=== PATIENT | male | born 1965 | race Native Hawaiian/Other Pacific Islander ===

== ENCOUNTER 2020-04-12 13:39 | Emergency (ER) | payer OTHER ==
[2020-04-12 13:45] VITALS: BP 130/82
--- NOTE | 2020-04-12 14:15 | Emergency Department Report ---
ED Headache HPI - General Chief Complaint: Headache Stated Complaint: HEADACHE Time Seen by Provider: 04/12/20 13:58 Source: patient, RN notes reviewed Exam Limitations: no limitations - History of Present Illness Initial Comments: This is a 55-year-old male nontoxic, well nourished in appearance, no acute signs of distress presents to the ED with c/o of acute headache and neck pain x1 day. Patient stated a cargo landed onto his posterior scalp area and had about 15 to 20 minutes loss of consciousness. Bystanders present during this time. Patient that this occurred yesterday around 3 PM. Patient describes headache as diffuse with level of 8 out of 10. Patient denies thunderclap headache. Patient denies any radiation of pain. Patient denies any visual changes. Pat ient denies worse headache. Patient denies any numbness, tingling, fever, chills, nausea, vomiting, chest pain, shortness of breath, stiff neck. Patient denies facial drooping or one sided weakness. Patient denies any radiation of pain. Patient denies any allergies. Quality: mild, achy Head Injury Location: occipital Recent Head Trauma: head trauma > 24 hrs ago Associated Symptoms: loss of consciousness. denies: confusion, fatigue, facial pain, fever/chills, flushing, nausea/vomiting, nasal congestion, nasal drainage, numbness in legs/feet, rash, seizures, sinus infection, stiff neck, vision changes, weakness Allergies/Adverse Reactions: Allergies No Known Allergies Allergy (Verified 04/12/20 13:45) Home Medications: Ambulatory Orders Acetaminophen/Codeine [Tylenol /Codeine # 3 tab] 1 tab PO Q6H PRN #12 tab 04/12/20 ED Review of Systems ROS: Stated complaint: HEADACHE Other details as noted in HPI Comment: All other systems reviewed and negative Constitutional: denies: chills, fever Eyes: denies: eye pain, eye discharge, vision change ENT: denies: ear pain, throat pain Respiratory: denies: cough, shortness of breath, wheezing Cardiovascular: denies: chest pain, palpitations Endocrine: no symptoms reported Gastrointestinal: denies: abdominal pain, nausea, diarrhea Genitourinary: denies: urgency, dysuria Musculoskeletal: denies: back pain, joint swelling, arthralgia Skin: denies: rash, lesions Neurological: headache. denies: weakness, numbness, paresthesias, confusion, abnormal gait, vertigo Psychiatric: denies: anxiety, depression Hematological/Lymphatic: denies: easy bleeding, easy bruising ED Past Medical Hx - Social History Smoking Status: Current Every Day Smoker Substance Use Type: None - Medications Home Medications: Home Medications Medication Instructions Recorded Confirmed Last Taken Type Acetaminophen/Codeine [Tylenol 1 tab PO Q6H PRN #12 tab 04/12/20 Unknown Rx /Codeine # 3 tab] ED Physical Exam - General Limitations: Language Barrier General appearance: alert, in no apparent distress - Head Head exam: Present: atraumatic, normocephalic - Eye Eye exam: Present: normal appearance, PERRL, EOMI - ENT ENT exam: Present: normal exam, normal orophraynx - Neck Neck exam: Present: normal inspection, full ROM. Absent: tenderness, meningismus, lymphadenopathy - Respiratory Respiratory exam: Absent: respiratory distress - Cardiovascular Cardiovascular Exam: Present: regular rate - GI/Abdominal GI/Abdominal exam: Present: soft. Absent: distended, tenderness - Extremities Exam Extremities exam: Present: normal inspection, full ROM, normal capillary refill. Absent: tenderness - Back Exam Back exam: Present: normal inspection, full ROM, paraspinal tenderness (cervical paraspinal). Absent: tenderness, CVA tenderness (R), CVA tenderness (L), muscle spasm, vertebral tenderness, rash noted - Expanded Back Exam Expanded Back exam: Absent: saddle anesthesia Back exam: Negative Straight Leg Raising: Left, Right - Neurological Exam Neurological exam: Present: alert, oriented X3, normal gait - Expanded Neurological Exam Expanded Patient oriented to: Present: person, place, time Cranial nerves: EOM's Intact: Normal, Facial Sensation: Normal Cerebellar function: Finger to Nose: Normal Upper motor neuron: Pronator Drift: Normal, Sensory Extinction: Normal Motor strength exam: RUE: 5, LUE: 5, RLE: 5, LLE: 5 Best Eye Response ([place]): (4) open spontaneously Best Motor Response ([place]): (6) obeys commands Best Verbal Response (Abdulkadir): (5) oriented Abdulkadir Total: 15 - Psychiatric Psychiatric exam: Present: normal affect, normal mood - Skin Skin exam: Present: warm, dry, intact, normal color. Absent: rash ED Course Vital Signs 04/12/20 13:43 Temperature 99.2 F Pulse Rate 67 Respiratory 20 Rate Blood Pressure 130/82 O2 Sat by Pulse 97 Oximetry - Reevaluation(s) Reevaluation #1: 04/12/20 14:14 Patient is speaking in full sentences with no signs of distress noted. ED Medical Decision Making - Radiology Data CT dictated by Roe Vegas of head and cervical spine with impression of unremarkable. - Medical Decision Making This is a 55-year-old male that presents with headache contusion and cervical strain. Patient is stable and was examined by me. Patient is neurologically stable. There is no stiff neck or neck pain. Vital signs are stable. Patient is afebrile. Patient is notified of the CT results with no questions noted by the patient. Patient be discharged with Tylenol for pain. Patient was referred to Follow-up with a primary care/neurologist doctor in 3-5 days or if symptoms worsen and continue return to emergency room as soon as possible. At time of discharge, the patient does not seem toxic or ill in appearance. No acute signs of distress noted. Patient agrees to discharge treatment plan of care. No further questions noted by the patient. Critical care attestation.: If time is entered above; I have spent that time in minutes in the direct care of this critically ill patient, excluding procedure time. ED Disposition Clinical Impression: Head contusion Qualifiers: Encounter type: initial encounter Contusion of head detail: other part of head Qualified Code(s): S00.83XA - Contusion of other part of head, initial encounter Cervical muscle strain Qualifiers: Encounter type: initial encounter Qualified Code(s): S16.1XXA - Strain of muscle, fascia and tendon at neck level, initial encounter Disposition: DC-01 TO HOME OR SELFCARE Is pt being admited?: No Does the pt Need Aspirin: No Condition: Stable Additional Instructions: Follow-up with a primary care doctor in 3-5 days or if symptoms worsen and continue return to emergency room as soon as possible. Do not operate any machinery while taking Tylenol with codeine as this may cause drowsiness. Prescriptions: Acetaminophen/Codeine [Tylenol /Codeine # 3 tab] 1 tab PO Q6H PRN #12 tab PRN Reason: Pain , Severe (7-10) Referrals: PRIMARY CARE, [Primary Care Provider] - 3-5 Days DAYANNA HORNER MD [Staff Physician] - 3-5 Days Forms: Work/School Release Form(ED) Time of Disposition: 15:14
--- NOTE | 2020-04-12 15:01 | Cat Scan Report ---
CT BRAIN: 04/12/2020 INDICATION / CLINICAL INFORMATION: headache w/ loc. COMPARISON: None available. FINDINGS: BRAIN/INTRACRANIAL STRUCTURES: Unenhanced CT images of the brain demonstrate no evidence of acute int racranial abnormality. Incidental note is made of asymmetric shape to the calvarium, developmental variant. Ventricles and sulci are normal in size and shape. There is no evidence of acute ischemic injury, hemorrhage, or mass. EXTRACRANIAL STRUCTURES: Unremarkable. IMPRESSION: No acute abnormality. All CT scans at this location are performed using dose reduction to ALARA by means of automated expos ure control. Signer Name: Roe Kim MD Signed: 04/12/2020 2:56 PM Workstation Name: [id number]
--- NOTE | 2020-04-12 15:03 | Cat Scan Report ---
CT CERVICAL SPINE: 04/12/2020 INDICATION / CLINICAL INFORMATION: headache w/ loc. Injury COMPARISON: None available. FINDINGS: CT images of the cervical spine were obtained. Images are evaluated in the axial, coronal, and sagitt al planes. Unenhanced CT images of the cervical spine demonstrate no evidence of acute abnormality. Slight reversal of cervical lordosis is centered at the C5 level. Vertebral body alignment is otherwi se unremarkable. Mild disc space narrowing is present at C5-6 and C6-7 associated with disc related osteophyte formati on. CRANIOCERVICAL JUNCTION: Unremarkable. PARASPINAL STRUCTURES: Unremarkable IMPRESSION: No acute abnormality. All CT scans at this location are performed using dose reduction to ALARA by means of automated expos ure control. Signer Name: Roe Kim MD Signed: 04/12/2020 2:59 PM Workstation Name: [id number]
== END 2020-04-12 16:31 | disposition home or self-care (01) ==
LOC: ED 13:39
DX: S16.1XXA Strain of muscle, fascia and tendon at neck level, initial encounter (principal); S00.83XA Contusion of other part of head, initial encounter; F17.200 Nicotine dependence, unspecified, uncomplicated; Z79.899 Other long term (current) drug therapy; X58.XXXA Exposure to other specified factors, initial encounter; Y93.89 Activity, other specified; Y92.89 Other specified places as the place of occurrence of the external cause; Y99.8 Other external cause status
CPT/HCPCS: 70450; 72125; 99283